=== PATIENT | male | born 2005 | race Two or more races ===

== ENCOUNTER 2023-01-22 09:01 | Emergency (ER) | payer MEDICAID, OTHER ==
[~2023-01-22] VITALS: Ht 170.2 cm; Wt 54.5 kg
[2023-01-22 09:58] LABS: Urine Bacteria NONE SEEN /hpf (None Seen); Urine Blood Negative /uL (Negative); Urine Clarity Clear (Clear); Urine Color Yellow (Yellow); Urine Mucus FEW (None Seen); Urine Protein, UAD Negative (Negative); Urine Specific Gravity 1.023 (1.001-1.035); Urine Urobilinogen Normal (Negative); Urine WBC 1 /hpf (0 - 3)
[2023-01-22] MEDS: LORazepam 0.5 MG TAB PO ONE ×2 (10:04→10:15)
[2023-01-22 10:18] VITALS: BP 115/81; PULSE 78; RESP 16; TEMP 97.8; O2SAT 99
[2023-01-22] MEDS ORDERED: LORA-655 PO (10:23)
== END 2023-01-22 10:43 | disposition home or self-care (01) ==
LOC: ER 09:01
DX: F19.10 Other psychoactive substance abuse, uncomplicated (principal); F11.23 Opioid dependence with withdrawal
CPT/HCPCS: 81001

== ENCOUNTER 2023-02-09 23:06 | Emergency (ER) | payer MEDICAID ==
[~2023-02-09 23:06] MED LIST: LORA-655 PO
== END 2023-02-10 00:17 | disposition left against medical advice (07) ==
LOC: ER 23:06
DX: F19.239 Other psychoactive substance dependence with withdrawal, unspecified (principal); Z53.21 Procedure and treatment not carried out due to patient leaving prior to being seen by health care provider